=== PATIENT | female | born 1995 | race Caucasian/White ===

== ENCOUNTER 2024-04-22 04:49 | Emergency (ER) | payer BC, OTHER ==
[2024-04-22] MEDS ORDERED: diphenhydrAMINE 50 MG/ML VIAL ONE (05:23)
[2024-04-22] MEDS ORDERED: Prochlorperazine 10 MG/2 ML VIAL ONE (05:23)
[2024-04-22] MEDS ORDERED: Acetaminophen 500 MG TAB ONE (05:23)
[2024-04-22 06:21] LABS: #Basophils 0.03 10x3/uL (0.0-0.2); #Eosinophils 0.09 10x3/uL (0.0-0.5); #Neutrophils 6.43 10x3/uL (1.5-8.4); %Basophils 0.3 % (0.0-2.0); %Eosinophils 0.9 % (0.0-6.0); %Lymphocytes 22.5 % (18.0-47.0); %Monocytes 9.3 % (0.0-10.0); %Neutrophils 66.7 % (40.0-75.0); Hematocrit 39.8 % (34.9-44.5); Hemoglobin 13.2 g/dL (12.0-15.5); Mean Corpuscular HGB CONC 33.2 g/dL (32.0-36.0); Mean Corpuscular Hemoglobin 29.7 pg (27.0-33.0); Mean Corpuscular Volume 89.6 fL (81.6-98.3); Mean Platelet Volume 10.6 fL (7.4-10.4); Platelet Count 215 10x3/uL (150-450); RBC Distribution Width 13.2 % (11.5-14.5); Red Blood Cell (RBC) Count 4.44 10x6/uL (3.90-5.03); White Blood Cell (WBC) Count 9.7 10x3/uL (3.5-10.5)
[2024-04-22 06:23] LABS: BHCG - Serum Negative (NEGATIVE); Pregs Control Background? CLEAR/WHITE (CLR/WHITE); Pregs Control Bar Appear? YES (CONTROL BAR)
[2024-04-22 06:31] LABS: ALT (SGPT) 44 U/L (8-55); AST (SGOT) 31 U/L (5-34); Albumin 3.8 g/dL (3.5-5.0); Alkaline Phosphatase 90 U/L (40-110); Anion Gap 13 mmol/L (10-20); BUN (Urea Nitrogen) 7 mg/dL (7.0-18.7); Bilirubin, Total 0.4 mg/dL (0.2-1.2); Calc. Creatinine Clearance 0 mL/min (70-130); Calcium 8.9 mg/dL (7.8-10.44); Carbon Dioxide 22 mmol/L (22-29); Chloride 107 mmol/L (98-107); Estimated GFR 120; Globulin 3.2 g/dL (2.4-3.5); Glucose 101 mg/dL (70-105); Sodium 138 mmol/L (136-145)
== END 2024-04-22 06:43 | disposition home or self-care (01) ==
LOC: CSHERS 04:49
DX: G43.909 Migraine, unspecified, not intractable, without status migrainosus (principal)
CPT/HCPCS: 36415; 80053; 84703; 85025; 96374; 96375; J0780; J1200